=== PATIENT | male | born 1980 | race Caucasian/White ===

== ENCOUNTER 2020-11-10 19:08 | Emergency (ER) | payer OTHER ==
[~2020-11-10] VITALS: Ht 162.6 cm; Wt 86.2 kg
[2020-11-10] MEDS ORDERED: ADVIL (19:36)
== END 2020-11-10 22:27 | disposition home or self-care (01) ==
LOC: ER 19:08
DX: B34.9 Viral infection, unspecified (principal); J00 Acute nasopharyngitis [common cold]; Z11.52 Encounter for screening for COVID-19

== ENCOUNTER 2021-12-18 21:50 | Emergency (ER) | payer OTHER ==
[~2021-12-18] VITALS: Ht 162.6 cm; Wt 90.7 kg
[~2021-12-18 21:50] MED LIST: ADVIL
[2021-12-19] MEDS ORDERED: DOLOGESIC-DF 51 EACH PO (02:43)
[2021-12-19] MEDS ORDERED: ZYNCOF 20-400120 ML PO (02:43)
== END 2021-12-19 03:12 ==
LOC: ER 21:50
DX: B34.9 Viral infection, unspecified (principal); Z20.822 Contact with and (suspected) exposure to COVID-19; Z88.8 Allergy status to other drugs, medicaments and biological substances

== ENCOUNTER 2022-10-25 06:11 | Emergency (ER) | payer OTHER ==
[~2022-10-25] VITALS: Ht 162.6 cm; Wt 79.4 kg
[~2022-10-25 06:11] MED LIST changes: +DOLOGESIC-DF 51 EACH PO; +ZYNCOF 20-400120 ML PO
== END 2022-10-25 09:04 | disposition home or self-care (01) ==
LOC: ER 06:11
DX: H00.032 Abscess of right lower eyelid (principal); Z88.0 Allergy status to penicillin

== ENCOUNTER → 2024-03-29 | Emergency (ER) | payer OTHER ==
[~2024-03-29] VITALS: Ht 162.6 cm; Wt 79.4 kg
[~2024-03-29] MED LIST changes: +ATORVASTATIN CA10 MG PO; +JARDIANCE10 MG PO; +LIPITOR40 M1 PO
[2024-03-29 22:24] VITALS: BP 145/87; O2SAT 98
== END | disposition left against medical advice (07) ==
LOC: ER 22:06
DX: Z53.21 Procedure and treatment not carried out due to patient leaving prior to being seen by health care provider (principal)